=== PATIENT | male | born 1980 | race Caucasian/White ===

== ENCOUNTER 2016-07-21 10:08 | Emergency (ER) | payer BC ==
[~2016-07-21] VITALS: Ht 167.6 cm; Wt 78.8 kg
[2016-07-21 10:10] VITALS: Ht 167.6 cm; Wt 78.8 kg
[2016-07-21] MEDS ORDERED: KETOROLAC 60 MG INJ IM STA (11:19)
[2016-07-21] MEDS ORDERED: D-ME473S18 PO (11:23)
[2016-07-21] MEDS ORDERED: NAPR-260 PO (11:24)
[2016-07-21] MEDS ORDERED: BENZ200C43 PO (11:24)
[2016-07-21] MEDS ORDERED: LIDO20SO19 MM (11:24)
--- NOTE | 2016-07-21 13:41 | ERD ---
ER Documentation Chief Complaint Date/Time DATE: 07/21/16 TIME: 13:38 Chief Complaint COUGH CRAFT AND ST X 5 DAYS HPI This patient is a 35-year-old male with no significant medical history presenting to the emergency department for moderate sore throat, headache, and chest congestion and cough ongoing for the past 5 days. The patient denies history of pneumonia or bronchitis. The patient has taken no medications at home for relief of his symptoms. The patient denies nausea, vomiting, diarrhea , fevers, chills, urinary symptoms, or other symptoms at this time. ROS All systems reviewed and are negative except as per history of present illness. Medications Home Meds Active Scripts Naproxen* (Naprosyn*) 500 Mg Tablet, 500 MG PO BID Y for PAIN AND/OR INFLAMMATION, #30 TAB Prov:TANYA YO PA-C 07/21/16 Benzonatate* (Benzonatate*) 200 Mg Capsule, 200 MG PO TID Y for COUGH, #20 CAP Prov:TANYA YO PA-C 07/21/16 Lidocaine (Lidocaine Viscous) 100 Ml Soln, 5 ML MM TID for sore throat, #1 BOTTLE Prov:TANYA YO PA-C 07/21/16 Dextromethorphan Hb-Promethazine Hcl (Promethazine DM Syrup) 473 Ml Syrup, 5 ML PO Q6H Y for COUGH, #4 OZ Prov:TANYA YO PA-C 07/21/16 Allergies Allergies: Coded Allergies: No Known Allergy (Unverified , 07/21/16) PMhx/Soc Medical and Surgical Hx: pt denies Medical Hx, pt denies Surgical Hx Hx Alcohol Use: No Hx Substance Use: No Hx Tobacco Use: No Smoking Status: Never smoker FmHx Noncontributory for chief complaint Physical Exam Vitals Vital Signs Date Time Temp Pulse Resp B/P Pulse Ox O2 Delivery O2 Flow Rate FiO2 07/21/16 10:10 98.3 88 18 142/97 98 Physical Exam INITIAL VITAL SIGNS: Reviewed by me. GENERAL: Alert and interactive. No acute distress. HEAD: Head is normocephalic and atraumatic. EYES: EOMI. No scleral icterus. No conjunctival injection. ENT: The throat is erythematous. There is no tonsillar hypertrophy. There is no exudate noted. NECK: Supple. Full range of motion. RESPIRATORY: Normal respiratory effort. Clear breath sounds bilaterally. No wheezing, rales, or rhonchi. CV: Regular rate and rhythm. Normal S1 S2. No S3 or S4. No murmurs. ABDOMEN: Soft, non-distended, non-tender. No guarding. No rebound. No masses. EXTREMITIES: No deformity. SKIN: Warm and dry. NEUROLOGIC: Alert and oriented x 4. Speech is normal. Moves all extremities equally. No motor or sensory deficits noted. Results 24 hrs Current Medications Medications (Trade) Dose Ordered Sig/Jaky Route PRN Reason Start Time Stop Time Status Last Admin Dose Admin Ketorolac Tromethamine (Toradol) 60 mg ONCE STAT IM 07/21/16 11:19 07/21/16 11:20 DC 07/21/16 11:26 Procedures/MDM 35-year-old male presents secondary to complaints of sore throat, headache, and chest congestion and cough. On physical examination the patient's blood pressure slightly elevated which I believe is secondary to acute viral illness. The blood pressure was rechecked prior to discharge. Patient's blood pressure was elevated (>120/80) but appears stable without evidence of hypertension emergency or urgency. The patient was counseled about the risks of hypertension and urged to pursue outpatient monitoring and therapy within a week with their primary care physician. I discussed possibility of chest x-ray with the patient and he declined at this time. I felt this was a reasonable decision and I heard no wheezes, rales, or rhonchi on auscultation of the lungs. The patient is stable for treatment as an outpatient with prescriptions for Promethazine DM, viscous lidocaine, benzonatate, and naproxen. The patient agrees with the plan and discharge instructions. All questions and concerns were addressed. The patient was advised to return to the emergency department immediately with any new or worsening symptoms and he demonstrates good understanding of this information. Departure Diagnosis: Primary Impression: Upper respiratory infection Additional Impressions: Cough Sore throat Condition: Fair Patient Instructions: When You Have a Sore Throat, Preventing Common Respiratory Infections, Cough, Chronic, Uncertain Cause, (Adult) Referrals: [facility] Usted se craft hecho un examen mdico de control que le indica que no est en davi condicin que requiera tratamiento urgente en el Departamento de Emergencia. Un estudio ms profundo y el tratamiento de [place]oston condicin pueden esperar sin ningn riesgo hasta que usted sea atendida/o en el consultorio de boston mdico o davi cl pamella. Es responsabilidad suya arreglar davi selena para el seguimiento del rinku. MANEJO DE CONDICIONES NO URGENTES EN EL FUTURO 1) Si usted tiene un mdico de atencin primaria: Usted debera llamar a [place]oston mdico de atencin primaria antes de venir al departamento de emergencia. Despus de las horas de consultorio, boston doctor o boston asociado/a est disponible por telfono. El mdico o enfermero de [place] en el servicio telefnico puede asesorarle por nayeli medio para atender el problema, o rinku contrario se puede programar davi selena. 2) Si usted no tiene un mdico de atencin primaria: Llame al mdico o clnica de referencia que aparece abajo jessie las horas de consultorio para hacer davi selena para que le vean. CLINICAS: [facility] [phone] [facility] [phone] [facility]. [facility] [phone] [address] [facility]. [facility] [phone] [facility] [place] [id number] [phone] [facility]. [phone] [address] Additional Instructions: No mas mejor en 2-3 hairston, regresar. Mas peor en 24 horas, regresear rapidamente. Ir a doctor primario in 5-7 hairston. Usar instrucciones cuando yoandy medicamento. TANYA YO PA-C Jul 21, 2016 13:41
== END 2016-07-21 11:45 | disposition home or self-care (01) ==
LOC: FTE 10:08
DX: J06.9 Acute upper respiratory infection, unspecified (principal); R05 Cough
CPT/HCPCS: 96372; 99284; J1885